=== PATIENT | female | born 1990 | race Caucasian/White ===

== ENCOUNTER 2017-11-11 22:19 | Emergency (ER) | payer SELFPAY ==
[~2017-11-11] VITALS: Ht 160 cm; Wt 61.1 kg
[2017-11-11 22:21] VITALS: TEMP 36.6; Ht 160 cm; Wt 61.1 kg
--- NOTE | 2017-11-11 23:06 | EMERGENCY ROOM VISIT NOTE ---
History Report prepared by Von: Romy Lizarraga Under the Supervision of: Dr. Aries Banks M.D. First contact with patient: 22:55 Chief Complaint: PAIN (GENERALIZED) Stated Complaint: BODY AND JOINT PAIN, SWELLING, MEMORY LOSS History of Present Illness The patient is a 26 year old female who presents to the Emergency Room with complaints of generalized aches and pains. Started 3 weeks til several months ago. Notes pains in joints and paresthesias in hands. Periodic swelling of hands as well. Also has pain in low back, hands, feet, and legs. States sometimes she has no strength in her hands. Notes she is always tired and needs to sleep a lot. Also notes periodic feeling short of breath, sore throat , bady aches and fatigue. Denies urinary burning, frequency, chest pain, headache, vision changes, rashes, nor other symptoms. Admits recent trauma right posterior calf from falling on railroad tracks. Admits she periodically does IV meth but is certain that she only uses clean needles. She Admits periodic tick bites. No new medications. Nothing makes her symptoms better nor worse. No other trauma. Denies headache nor neck pain. 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 A total of 10 systems reviewed and were otherwise negative. Past Medical & Surgical Medical Problems: (1) No significant past medical history Family History No pertinent family history Social History Smoking Status: Current Every Day Smoker Smokeless Tobacco Use: Unknown Alcohol Use: occasionally Marital Status: in relationship Housing Status: lives with significant other Current/Historical Medications Scheduled Cephalexin Monohydrate (Keflex), 500 MG PO QID Physical Exam Vital Signs Date Time Temp Pulse Resp B/P (MAP) Pulse Ox O2 Delivery O2 Flow Rate FiO2 11/12/17 01:58 82 20 134/72 98 11/12/17 00:14 84 20 120/69 98 Room Air 11/11/17 22:21 36.6 80 20 111/70 100 Room Air Physical Exam GENERAL: Patient is tired appearing and in mild distress. EYES: No scleral icterus, unremarkable pupils. ENT: Mucous membranes moist, no nasal congestion. NECK: No masses appreciated, no meningismus, trachea is midline. RESPIRATORY: No dyspnea. Clear to auscultation and equal bilaterally. No wheeze , no rhonchi. CARDIOVASCULAR: Regular rate and rhythm. No murmurs, rubs, gallops appreciated. GASTROINTESTINAL: Abdomen soft, nontender, no peritonitis. Bowel sounds positive. No masses appreciated. BACK: No midline tenderness, no CVA tenderness EXTREMITIES: Normal motion all extremities, no cyanosis, no edema. NEUROLOGIC: Alert and oriented, no acute motor or sensory deficits, no focal weakness, cranial nerves grossly intact. SKIN: No rash, no jaundice, no diaphoresis. Track mcmanus bilateral arms and a bruise of the right posterior lower leg Medical Decision & Procedures ER Provider Diagnostic Interpretation: X ray results are stated below per my interpretation: Chest: 1 view: No infiltrate, no effusion, normal cardiac border. Laboratory Results 11/11/17 22:48 Red Blood Count 4.79, Mean Corpuscular Volume 87.3, Mean Corpuscular Hemoglobin 30.3, Mean Corpuscular Hemoglobin Concent 34.7, Mean Platelet Volume 9.6, Neutrophils (%) (Auto) 55.4, Lymphocytes (%) (Auto) 35.3, Monocytes (%) (Auto) 7.4, Eosinophils (%) (Auto) 1.1, Basophils (%) (Auto) 0.6, Neutrophils # (Auto) 3.00, Lymphocytes # (Auto) 1.91, Monocytes # (Auto) 0.40, Eosinophils # (Auto) 0.06, Basophils # (Auto) 0.03 11/11/17 22:48 11/11/17 23:59 Test 11/11/17 22:40 11/11/17 22:48 11/11/17 23:59 Urine Color YELLOW Urine Appearance CLOUDY (CLEAR) Urine pH 6.0 (4.5-7.5) Urine Specific [place] 1.021 (1.000-1.030) Urine Protein NEG (NEG) Urine Glucose (UA) NEG (NEG) Urine Ketones NEG (NEG) Urine Occult Blood 2+ (NEG) Urine Nitrite POS (NEG) Urine Bilirubin NEG (NEG) Urine Urobilinogen NEG (NEG) Urine Leukocyte Esterase MODERATE (NEG) Urine WBC (Auto) 10-30 /hpf (0-5) Urine RBC (Auto) 0-4 /hpf (0-4) Urine Hyaline Casts (Auto) 1-5 /lpf (0-5) Urine Epithelial Cells (Auto) 20-30 /lpf (0-5) Urine Bacteria (Auto) 4+ (NEG) Urine Test NEG (NEG) White Blood Count 5.41 K/uL (4.8-10.8) Red Blood Count 4.79 M/uL (4.2-5.4) Hemoglobin 14.5 g/dL (12.0-16.0) Hematocrit 41.8 % (37-47) Mean Corpuscular Volume 87.3 fL (80-100) Mean Corpuscular Hemoglobin 30.3 pg (25-34) Mean Corpuscular Hemoglobin Concent 34.7 g/dl (32-36) Platelet Count 293 K/uL (130-400) Mean Platelet Volume 9.6 fL (7.4-10.4) Neutrophils (%) (Auto) 55.4 % Lymphocytes (%) (Auto) 35.3 % Monocytes (%) (Auto) 7.4 % Eosinophils (%) (Auto) 1.1 % Basophils (%) (Auto) 0.6 % Neutrophils # (Auto) 3.00 K/uL (1.4-6.5) Lymphocytes # (Auto) 1.91 K/uL (1.2-3.4) Monocytes # (Auto) 0.40 K/uL (0.11-0.59) Eosinophils # (Auto) 0.06 K/uL (0-0.5) Basophils # (Auto) 0.03 K/uL (0-0.2) RDW Standard Deviation 42.6 fL (36.4-46.3) RDW Coefficient of Variation 13.3 % (11.5-14.5) Immature Granulocyte % (Auto) 0.2 % Immature Granulocyte # (Auto) 0.01 K/uL (0.00-0.02) Anion Gap 5.0 mmol/L (3-11) Est Creatinine Clear Calc Drug Dose 70.5 ml/min Estimated GFR () 90.1 Estimated GFR (Non- 77.7 BUN/Creatinine Ratio 11.4 (10-20) Calcium Level 9.0 mg/dl (8.5-10.1) Total Bilirubin 1.0 mg/dl (0.2-1) Alanine Aminotransferase (ALT/SGPT) 39 U/L (12-78) Alkaline Phosphatase 126 U/L (45-117) Troponin I < 0.015 ng/ml (0-0.045) C-Reactive Protein 1.53 mg/dl (0-0.29) Total Protein 8.3 gm/dl (6.4-8.2) Albumin 4.1 gm/dl (3.4-5.0) Globulin 4.2 gm/dl (2.5-4.0) Albumin/Globulin Ratio 1.0 (0.9-2) Aspartate Amino Transf (AST/SGOT) 16 U/L (15-37) Total Creatine Kinase 92 U/L (26-192) Rapid Plasma Reagin NONREACTIVE (NONREACT) Lyme Disease IgG Antibody NEG (NEG) Lyme Disease IgM Antibody NEG (NEG) HIV (1&2) Ab and P24 Ag, 4th Gener NEG (NEG) Laboratory results as reviewed by me. Medications Administered Medications (Trade) Dose Ordered Sig/Cristy Route Start Time Stop Time Status Last Admin Dose Admin Cephalexin Monohydrate (Keflex Cap) 1,000 mg NOW ONCE PO 11/12/17 02:00 11/12/17 02:01 DC 11/12/17 01:57 1,000 MG ECG Per My Interpretation Indication: other (generalized pain) Rate (beats per minute): 67 Rhythm: normal sinus Findings: no acute ischemic change, no ectopy Comparison ECG Date: no prior available ED Course 2256: The patient was evaluated in room C3. A complete history and physical exam was performed. 0150: I checked on the patient at this time. She states she wants to know what is causing her symptoms. However, she refused further testing and imaging, in particular but declines any further imaging of head and chest. She states she has been on Keflex before which has worked for her urine infections. I advised her to get a PCP but she noted she probably would not. I also advised her that her RBR and HIV testing was not back yet. She is aware these tests are not back and my advice is for her to stay until her results come back. However, her ride is here and she notes she needs to leave. Discussed results and discharge instructions: She verbalized understanding and agreement. The patient is ready for discharge. 0200: Ordered Keflex Cap 1000 mg PO Medical Decision Differential: Sepsis, Infectious (UTI/Pneumonia/Meningitis/etc), Metabolic/ Electrolyte Abnormality, Cardiac, Dehydration, Anemia, Hepatic, Endocrine, Toxicologic, Neurologic, amongst other pathologies entertained. 26 yr old female with history of recent IV drug abuse and frequent UTIs arrives with several weeks/months of many vague complaints. She is not septic appearing , is not meningitic/encephalopathic, nor in any significant distress. Vast array of labs done without any acute findings other than clearly has UTI. Lyme , HIV, RPR negative. LFTs unremarkable. She continues to complain of vague symptoms and neurologic paresthesias thus offered imaging brain which she refused. She wishes to be discharged. No acute reason for her array of symptoms could be determined while here in ED and she is now at point where she no longer wishes to be in ED. I counselled against further drug use. Discussed possibility of this worsening and needing further work up. Heavily stressed PCP follow up which she scoffed at. Aware she can always return if worsening or other concerns. Head Trauma GCS Score: 15 Medication Reconcilliation Current Medication List: was personally reviewed by me Blood Pressure Screening Patient's blood pressure: Normal blood pressure Blood pressure disposition: Did not require urgent referral Impression Primary Impression: UTI (urinary tract infection) Additional Impression: Paresthesias Scribe Attestation The scribe's documentation has been prepared under my direction and personally reviewed by me in its entirety. I confirm that the note above accurately reflects all work, treatment, procedures, and medical decision making performed by me. Departure Information Dispostion Home / Self-Care Prescriptions Cephalexin Monohydrate (Keflex) 500 Mg Cap 500 MG PO QID for 10 Days, #40 CAP Prov: Aries Banks M.D. 11/12/17 Referrals No Doctor, Assigned (PCP) Forms HOME CARE DOCUMENTATION FORM, IMPORTANT VISIT INFORMATION, WORK / SCHOOL INSTRUCTIONS Patient Instructions My [facility] Additional Instructions Return immediately if fevers, vomiting, passing out, worsening weakness, headaches, neck stiffness, or other emergent concerns. We are always here to try and help. You have been examined and treated today on an emergency basis only. This is not a substitute for, or an effort to provide, complete comprehensive medical care. It is impossible to recognize and treat all injuries or illnesses in a single emergency department visit. It is therefore important that you follow up closely with your Primary Physician. Call as soon as possible for an appointment so you can review all labs, imaging and other testing that you had. Return to Emergency Department, call 911 or seek immediate medical attention if you feel your symptoms are worsening. Problem Qualifiers Primary Impression: UTI (urinary tract infection) Urinary tract infection type: acute cystitis Hematuria presence: without hematuria Qualified Codes: N30.00 - Acute cystitis without hematuria
[2017-11-11 23:21] LABS: BASO % 0.6 %; BASO ABS # 0.03 K/uL (0-0.2); EOS % 1.1 %; EOS ABS # 0.06 K/uL (0-0.5); HEMATOCRIT 41.8 % (37-47); HEMOGLOBIN 14.5 g/dL (12.0-16.0); IG# 0.01 K/uL (0.00-0.02); LYMPH % 35.3 %; LYMPH ABS # 1.91 K/uL (1.2-3.4); MEAN CELL VOLUME 87.3 fL (80-100); MEAN CORPUSCULAR HEMOGLOBIN 30.3 pg (25-34); MEAN CORPUSCULAR HGB CONC 34.7 g/dl (32-36); MEAN PLATELET VOLUME 9.6 fL (7.4-10.4); MONO % 7.4 %; NEUT % 55.4 %; PLATELET COUNT 293 K/uL (130-400); RED CELL DISTRIBUTION WIDTH CV 13.3 % (11.5-14.5); RED CELL DISTRIBUTION WIDTH SD 42.6 fL (36.4-46.3); WHITE BLOOD COUNT 5.41 K/uL (4.8-10.8)
[2017-11-11 23:48] LABS: ALBUMIN 4.1 gm/dl (3.4-5.0); ALKALINE PHOSPHATASE 126 U/L (45-117); ALT/SGPT 39 U/L (12-78); BLOOD UREA NITROGEN 11 mg/dl (7-18); CARBON DIOXIDE 25 mmol/L (21-32); GLUCOSE 63 mg/dl (70-99); SODIUM 138 mmol/L (136-145); TOTAL PROTEIN 8.3 gm/dl (6.4-8.2)
[2017-11-12 01:13] LABS: POTASSIUM 3.6 mmol/L (3.5-5.1)
[2017-11-12 01:49] LABS: RAPID PLASMA REAGIN NONREACTIVE (NONREACT)
[2017-11-12] MEDS ORDERED: CEPH500C PO (01:52)
[2017-11-12 01:58] VITALS: BP 134/72; PULSE 82; O2SAT 98
[2017-11-12] MEDS ORDERED: CEPHALEXIN MONOHYDRATE 250 MG CAP PO ONE (02:00)
--- NOTE | 2017-11-12 08:41 | DIAGNOSTIC IMAGING REPORT ---
SINGLE VIEW CHEST CLINICAL HISTORY: Generalized weakness. FINDINGS: An AP, portable, upright chest radiograph is obtained. No prior studies are available for comparison at the time of dictation. The cardiomediastinal silhouette is unremarkable. The lungs and pleural spaces are clear. No pneumothorax is seen. The bony thorax is grossly intact. IMPRESSION: No active disease in the chest. Electronically signed by: Moisés Beatty M.D. 11/12/2017 8:39 AM Dictated Date/Time: 11/12/2017 8:39 AM
--- NOTE | 2017-11-14 15:11 | Pharmacy Progress Note ---
ED Pharmacist Culture FollowUp Date of Service: Nov 14, 2017. Patient was sent home with a prescription for cephalexin, which should cover the E. coli growing from the patient's urine culture, based on reported sensitivity to cefazolin.
== END 2017-11-12 01:59 | disposition home or self-care (01) ==
LOC: C.EDB 22:21 → C.EDC 11-12 01:59
DX: N39.0 Urinary tract infection, site not specified (principal); R20.2 Paresthesia of skin; F11.90 Opioid use, unspecified, uncomplicated; F17.210 Nicotine dependence, cigarettes, uncomplicated